=== PATIENT | male | born 1965 | race Caucasian/White ===

== ENCOUNTER 2022-03-13 12:29 | Day surgery (SDC) | payer OTHER ==
[~2022-03-13] VITALS: Ht 170.2 cm; Wt 96.5 kg
[~2022-03-13 12:29] MED LIST: ASPI81EC PO; CEPH500 PO; MELO7.5 PO; NAPR500 PO; Norco 5-325 Ta1 EACH PO
[2022-03-13] MEDS ORDERED: ATOR40TA PO (13:50)
[2022-03-13] MEDS ORDERED: Cabergoline0.5 MG PO (13:50)
--- NOTE | 2022-03-13 14:30 | NUR ---
03/13/22 1430 Bhanu Kenny HISTORY, CHART, MEDICATIONS AND ALLERGIES REVIEWED BEFORE START OF PROCEDURE. PATIENT CONFIRMS NPO STATUS AND AGREES WITH SCHEDULED PROCEDURE. 3-LEAD EKG REVIEWED WITH PHYSICIAN PRIOR TO START OF PROCEDURE. MONITOR INTACT WITH CONTINUOUS PULSE OXIMETRY,CAPNOGRAPHY, 3-LEAD EKG, INTERMITTENT BP. SUPPLEMENTAL O2 TO BE TITRATED THROUGHOUT PROCEDURE TO MAINTAIN O2 SATURATION ABOVE 90%. PATIENT DETERMINED TO BE ASA APPROPRIATE FOR PROPOFOL SEDATION PRIOR TO START OF PROCEDURE BY DR. ORANTES.
== END 2022-03-13 22:45 | disposition home or self-care (01) ==
LOC: ORD 12:29 → ORSCMMR 12:30 → ORD 14:00
PROVIDERS: Internal Medicine Gastroenterology
PROC: 0DB58ZX Excision of Esophagus, Via Natural or Artificial Opening Endoscopic, Diagnostic (ICD-10-PCS; principal; 2022-03-13 15:00)
PROC: 0DBQ8ZZ Excision of Anus, Via Natural or Artificial Opening Endoscopic (ICD-10-PCS; principal; 2022-03-13 15:00)
DX: K20.90 Esophagitis, unspecified without bleeding (principal); K62.5 Hemorrhage of anus and rectum; R79.89 Other specified abnormal findings of blood chemistry; K57.30 Diverticulosis of large intestine without perforation or abscess without bleeding; K60.2 Anal fissure, unspecified; R13.10 Dysphagia, unspecified; K62.0 Anal polyp
CPT/HCPCS: J0171; J2250; J2405; J2704; J7120